=== PATIENT | female | born 1980 | race Caucasian/White ===

== ENCOUNTER → 2017-11-19 | Outpatient (CLI) | payer BC ==
--- NOTE | 2017-11-19 15:03 | XR ---
EXAMINATION TYPE: XR lumbar spine 2 or 3V DATE OF EXAM: 11/19/2017 CLINICAL HISTORY: pain TECHNIQUE: Three views of the lumbar spine are submitted. COMPARISON: None. FINDINGS: There are 5 lumbar type vertebral bodies identified. The lumbar spine shows satisfactory alignment w ithout evidence of acute fracture or dislocation. Vertebral body heights are within normal limits. Disc spaces are within normal limits. The overlying soft tissue appears unremarkable. IMPRESSION: No acute fracture or dislocation is seen in the lumbar spine. ICD 10 NO FRACTURE, INITIAL EVALUATION
== END | disposition home or self-care (01) ==
LOC: RADXRMAIN 14:40
PROVIDERS: ATTEND Physician Assistant
DX: M54.5 Low back pain (principal)
CPT/HCPCS: 72100

== ENCOUNTER → 2018-03-13 | Outpatient (CLI) | payer BC ==
[2018-03-13 17:50] LABS: ALT 28 U/L (9-52); AST 23 U/L (14-36); Albumin 4.6 g/dL (3.5-5.0); Alkaline Phosphatase 54 U/L (38-126); Anion Gap 8 mmol/L; Blood Urea Nitrogen 13 mg/dL (7-17); Calcium 9.5 mg/dL (8.4-10.2); Carbon Dioxide 24 mmol/L (22-30); Chloride 108 mmol/L (98-107); Glucose 85 mg/dL (74-99); Potassium 4.1 mmol/L (3.5-5.1); Sodium 140 mmol/L (137-145); Total Bilirubin 0.4 mg/dL (0.2-1.3); Total Protein 7.6 g/dL (6.3-8.2)
[2018-03-13 18:06] LABS: T4, Free (Free Thyroxine) 0.89 ng/dL (0.78-2.19)
== END | disposition home or self-care (01) ==
LOC: LABWHC1 17:23
PROVIDERS: ATTEND Physician Assistant
DX: L30.1 Dyshidrosis [pompholyx] (principal); R53.83 Other fatigue
CPT/HCPCS: 36415; 80053; 84439; 84443; 86780

== ENCOUNTER → 2018-12-03 | Outpatient (CLI) | payer BC | END | disposition home or self-care (01) | LOC: LABWHC1 16:01 | PROVIDERS: ATTEND Obstetrics & Gynecology | DX: Z34.01 Encounter for supervision of normal first pregnancy, first trimester (principal) | CPT/HCPCS: 36415; 84702; 86850; 86900; 86901 ==

== ENCOUNTER → 2019-01-11 | Outpatient (CLI) | payer BC | END | disposition home or self-care (01) | LOC: LABWHC1 16:10 | PROVIDERS: ATTEND Obstetrics & Gynecology | DX: N92.6 Irregular menstruation, unspecified (principal) | CPT/HCPCS: 36415; 84702 ==

== ENCOUNTER → 2019-05-22 | Outpatient (CLI) | payer BC ==
[2019-05-22 11:19] LABS: HCT 36.4 % (34.0-46.0); HGB 11.8 gm/dL (11.4-16.0); MCH 29.8 pg (25.0-35.0); MCHC 32.4 g/dL (31.0-37.0); MCV 91.8 fL (80.0-100.0); Mean Platelet Volume 7.8; Platelet Count 212 k/uL (150-450); RBC 3.96 m/uL (3.80-5.40); WBC 8.8 k/uL (3.8-10.6)
== END ==
LOC: LABWHC1 08:58
PROVIDERS: ATTEND Obstetrics & Gynecology
DX: Z34.02 Encounter for supervision of normal first pregnancy, second trimester (principal); Z3A.00 Weeks of gestation of pregnancy not specified
CPT/HCPCS: 36415; 82950; 85027

== ENCOUNTER 2019-08-16 16:46 | Inpatient (IN) | payer BC ==
[2019-08-16 17:48] LABS: Appearance,Urine Clear (Clear); Bacteria,Urine Occasional /hpf; Bilirubin,Urine Negative (Negative); Blood,Urine Negative (Negative); Color,Urine Colorless; Glucose,Urine (UA) Negative (Negative); Ketones,Urine Negative (Negative); Leukocyte Esterase,Urine Moderate (Negative); Nitrite,Urine Negative (Negative); PH, Urine 6.5 (5.0-8.0); Protein,Urine Negative (Negative); RBC,Urine 1 /hpf (0-5); Specific Gravity,Urine 1.002 (1.001-1.035); Squamous Epithelial Cell,Urine 1 /hpf (0-4); Urobilinogen,Urine <2.0 mg/dL (<2.0); WBC,Urine 11 /hpf (0-5)
[2019-08-16 17:56] LABS: Basophils % (A) 1 %; Eosinophils % (A) 0 %; HGB 12.4 gm/dL (11.4-16.0); Lymphocytes # (A) 0.9 k/uL (1.0-4.8); Lymphocytes % (A) 12 %; MCH 29.9 pg (25.0-35.0); MCHC 32.6 g/dL (31.0-37.0); MCV 91.9 fL (80.0-100.0); Mean Platelet Volume 9.7; Monocytes # (A) 0.4 k/uL (0-1.0); Monocytes % (A) 6 %; Neutrophils # (A) 5.6 k/uL (1.3-7.7); Neutrophils % (A) 77 %; Platelet Count 174 k/uL (150-450); RBC 4.13 m/uL (3.80-5.40); WBC 7.3 k/uL (3.8-10.6)
[2019-08-16 18:01] LABS: Protein/Creatinine Ratio,Urine 1.2
[2019-08-16 18:06] LABS: Uric Acid 3.5 mg/dL (3.7-7.4)
--- NOTE | 2019-08-16 18:57 | P.HPOB ---
History of Present Illness H&P Date: 08/16/19 Chief Complaint: elevated BP 38 year old presents at 36 weeks and 3 days to my office for a visit. Her blood pressure in the office was 142/86. She has complained of a mild headache but no vision changes no right upper quadrant pain. Her cervix is 1cm dilated, 50% effaced, -2 station, posterior. I sent her to triage for a lab workup. Labs were within normal limits except for a PC ratio that was elevated. Her blood pressures have come down low to 130s over 70s to 80s. With her cervical exam showing that she is remote from delivery, her PC ratio being the only outlier, and lack of symptoms, I would like to run a 24 hour urine protein. I am also going to give her Celestone injections 24 hours apart. Review of Systems All systems: negative Constitutional: Denies chills, Denies fever Eyes: denies blurred vision, denies pain Ears, nose, mouth and throat: Denies headache, Denies sore throat Cardiovascular: Denies chest pain, Denies shortness of breath Respiratory: Denies cough Gastrointestinal: Denies abdominal pain, Denies diarrhea, Denies nausea, Denies vomiting Genitourinary: Denies dysuria, Denies hematuria Musculoskeletal: Denies myalgias Integumentary: Denies pruritus, Denies rash Neurological: Denies numbness, Denies weakness Psychiatric: Denies anxiety, Denies depression Endocrine: Denies fatigue, Denies weight change Past Medical History Additional Past Medical History / Comment(s): Obstetric history: This is her first . She's had care with me since the first trimester. She was followed with [facility] and then with ct. Normal anatomy ultrasound. Blood type AB+, antibodies negative, rubella immune, RPR nonreactive, hepatitis B negative, HIV nonreactive, normal maternal age 22, toxoplasmosis negative. GBS negative History of Any Multi-Drug Resistant Organisms: None Reported Smoking Status: Never smoker Medications and Allergies Home Medications Medication Instructions Recorded Confirmed Type Aspirin [Adult Low Dose Aspirin EC] 81 mg PO DAILY 08/16/19 08/16/19 History Loratadine [Claritin] 10 mg PO DAILY 08/16/19 08/16/19 History Pnv No.95/Ferrous Fum/Folic AC 1 each PO DAILY 08/16/19 08/16/19 History [ Multivitamin Tablet] Allergies Allergy/AdvReac Type Severity Reaction Status Date / Time shellfish derived [Shellfish] Allergy Anaphylaxis Verified 08/16/19 16:51 Exam Osteopathic Statement: *. No significant issues noted on an osteopathic structural exam other than those noted in the History and Physical/Consult. Vital Signs Temp Pulse Resp BP 08/16/19 16:53 98.5 F 90 15 137/88 Intake and Output 08/16/19 08/16/19 08/16/19 06:59 14:59 22:59 Other: Weight 86.818 kg Heart: Regular rate and rhythm Lungs: Clear to auscultation bilaterally Abdomen: Soft, gravid, nontender Extremities: Negative Homans sign, 3+ DTR Results Result Diagrams: 08/16/19 17:20 Abnormal Lab Results - Last 24 Hours (Table) 08/16/19 08/16/19 08/16/19 Range/Units 16:45 17:20 17:20 Lymphocytes # 0.9 L (1.0-4.8) k/uL Uric Acid 3.5 L (3.7-7.4) mg/dL Ur Leukocyte Esterase Moderate H (Negative) Urine WBC 11 H (0-5) /hpf Urine Bacteria Occasional H (None) /hpf Assessment and Plan (1) Gestational hypertension Current Visit: Yes Status: Acute Code(s): O13.9 - GESTATIONAL HTN W/O SIGNIFICANT PROTEINURIA, UNSP TRIMESTER SNOMED Code(s): 906735716 Plan: 1. 24 urine protein 2. Celestone injections 24 hours apart 3. We did have a discussion that if she has an elevated urine protein we would need to place Cervidil tomorrow. If the urine protein is normal then she may be discharged home to return for delivery at 37 weeks.
[2019-08-16] MEDS: BETAMET ACET-BETAMETH SOD PHOS 6 MG/ML VIAL IM SCH (19:00)
[2019-08-17] MEDS ORDERED: DINOPROSTONE 10 MG INSERT.ER VAGINAL ONE (19:09)
[2019-08-17] MEDS: BETAMET ACET-BETAMETH SOD PHOS 6 MG/ML VIAL IM SCH (19:53)
--- NOTE | 2019-08-17 20:51 | P.PN ---
Progress Note - Text Progress Note Date: 08/17/19 Please see dictated H&P per Dr. Agrawal on this patient's admission. Patient was admitted for evaluation of hypertension and proteinuria. Patient is a 24 urine revealed elevated protein and had sporadic persistent elevated blood pressures. Dr. Agrawal discussed with the patient plan and at this time they have decided to proceed with delivery. Patient has an unfavorable cervix and therefore she discussed Cervidil placement and asked me to place this. Cervidil was placed, cervix is 1 cm dilated and thick. I did explain to the patient the induction procedure and process. All of her questions were answered.
[2019-08-18] MEDS ORDERED: CARBOPROST TROMETHAMINE 250 MCG/ML 1 ML AMP IM PRN (03:28)
[2019-08-18] MEDS ORDERED: LIDOCAINE 0.5% (PF) 5 MG/ML (50 ML SDV) SQ PRN (03:28)
[2019-08-18] MEDS ORDERED: TERBUTALINE 1 MG/ML VIAL SQ PRN (03:28)
[2019-08-18] MEDS ORDERED: OXYTOCIN 30 UNITS/500 ML NS 30 UNIT in SALINE 1 500ML.BAG IV SCH (03:28)
[2019-08-18] MEDS ORDERED: OXYTOCIN 10 UNIT/ML 1 ML VIAL IM PRN (03:28)
[2019-08-18] MEDS ORDERED: LACTATED RINGERS 1,000 ML IV SCH (03:28)
[2019-08-18] MEDS ORDERED: METHYLERGONOVINE 0.2 MG/ML 1 ML AMP IM PRN (03:28)
[2019-08-18 03:39] LABS: Basophils # (A) 0.1 k/uL (0-0.2); Basophils % (A) 0 %; Eosinophils # (A) 0.1 k/uL (0-0.7); Eosinophils % (A) 1 %; HCT 41.4 % (34.0-46.0); HGB 13.6 gm/dL (11.4-16.0); Lymphocytes # (A) 0.7 k/uL (1.0-4.8); Lymphocytes % (A) 5 %; MCH 29.8 pg (25.0-35.0); MCHC 32.8 g/dL (31.0-37.0); MCV 90.9 fL (80.0-100.0); Mean Platelet Volume 10.4; Monocytes # (A) 0.2 k/uL (0-1.0); Monocytes % (A) 2 %; Neutrophils # (A) 12.1 k/uL (1.3-7.7); Neutrophils % (A) 91 %; Platelet Count 226 k/uL (150-450); RBC 4.55 m/uL (3.80-5.40); RDW 13.1 % (11.5-15.5); WBC 13.3 k/uL (3.8-10.6)
[2019-08-18] MEDS: BUTORPHANOL 1 MG/ML 1 ML VIAL IV PRN ×2 (03:40→06:05)
[2019-08-18] MEDS ORDERED: diphenhydrAMINE 50 MG/ML 1 ML VIAL IVP PRN (07:38)
[2019-08-18] MEDS ORDERED: SIMETHICONE 80 MG CHEWABLE PO PRN (07:38)
[2019-08-18] MEDS ORDERED: BISACODYL 10 MG SUPP RECTAL PRN (07:38)
[2019-08-18] MEDS ORDERED: BENZOCAINE/MENTHOL SPRAY 1 GM/SPRAY AEROSOL TOPICAL PRN (07:38)
[2019-08-18] MEDS ORDERED: WITCH HAZEL 1 EACH MED..PAD TOPICAL PRN (07:38)
[2019-08-18] MEDS ORDERED: HYDROCORTISONE 2.5% RECTAL CREAM 30 GM TUBE RECTAL PRN (07:38)
[2019-08-18] MEDS ORDERED: ACETAMINOPHEN TAB 325 MG TAB PO PRN (07:38)
[2019-08-18] MEDS ORDERED: ZOLPIDEM 5 MG TAB PO PRN (07:38)
[2019-08-18] MEDS ORDERED: LANOLIN CREAM 5 GM TUBE TOPICAL PRN (07:38)
[2019-08-18] MEDS ORDERED: diphenhydrAMINE 25 MG CAP PO PRN (07:38)
[2019-08-18] MEDS ORDERED: OXYTOCIN 20 UNITS/1000 ML NS 1,000 ML IV SCH (07:45)
--- NOTE | 2019-08-18 07:46 | P.PROBDLV ---
Vaginal Delivery Note - . Vaginal Delivery Note: Normal spontaneous vaginal delivery viable female Apgars 8 and 9 delivery time is 0714 hours. Please see dictated H&P for intimate details of this patient's admission. Brief summary this is a pleasant 38-year-old 1 para 0 female 36-6/7 weeks gestation admitted by Dr. Agrawal for evaluation of hypertension. Patient has a diagnosis of preeclampsia and plan was to proceed with Cervidil placement. Cervidil is placed patient has spontaneous rupture membranes at approximately 3:00 in the morning for particulate meconium appearing fluid. Patient's labor progresses on its own at this time and she does request Stadol for pain control. Patient quickly progresses and gets to complete. She pushes the head to the perineum the posterior perineum was supported. We then have controlled delivery of infant's head over the intact perineum. Mouth and nares are bulb suctioned. [employer] is present for delivery. Of note when infant's head delivered there is a copious amount of clear fluid without evidence of meconium. The rest this infant's body was then easily delivered with gentle downward traction. This is a vigorous viable female infant Apgars are 8 and 9 delivery time was 0714 hours. After delivery of the the infant is late the mother's abdomen. After the cord is done pulsating is doubly clamped and then cut. It appears to be trivascular. The placenta is then spontaneously delivered intact. Inspection of the perineum does show a second-degree laceration. This is infiltrated with 1% lidocaine and then reapproximated with 3-0 Vicryl usual fashion. Excellent reapproximation is noted. All counts are correct 3. Blood loss is approximately 200 mL. There are no complications.
[2019-08-18] MEDS: IBUPROFEN 600 MG TAB PO PRN ×2 (15:48→20:35)
[2019-08-18] MEDS: SENNOSIDES-DOCUSATE SODIUM 1 EACH TAB PO SCH ×2 (20:35)
[2019-08-19] MEDS: IBUPROFEN 600 MG TAB PO PRN ×2 (08:14→20:22)
[2019-08-19] MEDS: SENNOSIDES-DOCUSATE SODIUM 1 EACH TAB PO SCH ×2 (08:15→20:22)
--- NOTE | 2019-08-19 08:26 | P.DS ---
Providers Date of admission: 08/18/19 09:44 Expected date of discharge: 08/19/19 Attending physician: Peri Agrawal Primary care physician: Stated None - Discharge Diagnosis(es) (1) Gestational hypertension Current Visit: Yes Status: Resolved (2) Pre-eclampsia Current Visit: Yes Status: Acute (3) Normal vaginal delivery Current Visit: Yes Status: Acute Hospital Course: Patient presented to my office with elevated blood pressures. When she presented here she had some elevated blood pressures, most labs were normal except for an elevated P0 she'll. Because she was only 36 week and to keep her for 24 hours and gave her steroid injections 24 hours apart. We also ran a 24-hour urine protein to confirm. The urine protein showed 438 mg of protein. She was diagnosed with preeclampsia and Cervidil was placed. She underwent normal vaginal delivery after the Cervidil was placed. her course was uncomplicated. She has no headache, vision changes, shortness of breath, nausea, vomiting, chest pain or calf pain. Her blood pressures are normal 120-130/60-80. She'll be discharged home day #1 in stable condition to follow-up with me in 6 weeks. We did review all the signs and symptoms of preeclampsia and went to be concerned and when to call the office. Plan - Discharge Summary New Discharge Prescriptions: New Ibuprofen [Motrin] 600 mg PO Q6HR PRN #30 tab PRN Reason: Mild Pain Or Fever >= 100.5 Discontinued Aspirin [Adult Low Dose Aspirin EC] 81 mg PO DAILY No Action Loratadine [Claritin] 10 mg PO DAILY Pnv No.95/Ferrous Fum/Folic AC [ Multivitamin Tablet] 1 each PO DAILY Discharge Medication List Loratadine [Claritin] 10 mg PO DAILY 08/16/19 [History] Pnv No.95/Ferrous Fum/Folic AC [ Multivitamin Tablet] 1 each PO DAILY 08/16/19 [History] Ibuprofen [Motrin] 600 mg PO Q6HR PRN #30 tab 08/19/19 [Rx] Follow up Appointment(s)/Referral(s): Peri Agrawal DO [Doctor of Osteopathic Medicine] - 6 Weeks Discharge Disposition: HOME SELF-CARE
[2019-08-19 23:57] VITALS: RESP 18
[2019-08-20] MEDS: IBUPROFEN 600 MG TAB PO PRN ×2 (04:43→08:46)
[2019-08-20 10:23] VITALS: BP 131/79; PULSE 90; TEMP 97.7
[2019-08-20] MEDS: SENNOSIDES-DOCUSATE SODIUM 1 EACH TAB PO SCH (10:24)
== END 2019-08-20 15:00 | disposition home or self-care (01) | DRG 807 ==
LOC: FBPOP 16:46 → 4FBP 18:28 → OBSVTOIN 08-18 09:44
PROVIDERS: ADMIT Obstetrics & Gynecology; ATTEND Obstetrics & Gynecology
PROC: 3E0P7VZ Introduction of Hormone into Female Reproductive, Via Natural or Artificial Opening (ICD-10-PCS; 2019-08-17)
PROC: 10E0XZZ Delivery of Products of Conception, External Approach (ICD-10-PCS; principal; 2019-08-18)
PROC: 0KQM0ZZ Repair Perineum Muscle, Open Approach (ICD-10-PCS; principal; 2019-08-18)
DX: O14.94 Unspecified pre-eclampsia, complicating childbirth (principal); Z37.0 Single live birth; Z3A.36 36 weeks gestation of pregnancy; O70.1 Second degree perineal laceration during delivery; O77.0 Labor and delivery complicated by meconium in amniotic fluid; Z79.82 Long term (current) use of aspirin; Z79.899 Other long term (current) drug therapy
CPT/HCPCS: 59025; 81001; 81050; 82570; 83615; 84156; 84450; 84460; 84550; 85025; 86850; 86900; 86901; 88307; 99215

== ENCOUNTER → 2021-06-30 | Outpatient (CLI) | payer BC ==
[2021-06-30 16:57] LABS: HCT 35.4 % (37.2-46.3); HGB 11.6 g/dL (12.0-15.0); MCH 30.1 pg (27.0-32.0); MCHC 32.8 g/dL (32.0-37.0); MCV 91.7 fL (80.0-97.0); Mean Platelet Volume 11.6 fL (9.5-12.2); Platelet Count 213 X 10*3/uL (140-440); RBC 3.86 X 10*6/uL (4.10-5.20); RDW 12.9 % (11.5-14.5); WBC 7.53 X 10*3/uL (4.50-10.00)
== END | disposition home or self-care (01) ==
LOC: LABWHC1 08:07
PROVIDERS: ATTEND Obstetrics & Gynecology
DX: Z34.82 Encounter for supervision of other normal pregnancy, second trimester (principal); Z3A.00 Weeks of gestation of pregnancy not specified
CPT/HCPCS: 36415; 82950; 85027

== ENCOUNTER 2021-08-28 15:00 | Outpatient (CLI) | payer BC ==
[2021-08-28 16:01] LABS: Creatinine,Urine Random 48.2 mg/dL; Protein/Creatinine Ratio,Urine 0.353
[2021-08-28 16:06] LABS: Basophils % (A) 0 %; Eosinophils # (A) 0.1 k/uL (0-0.7); Eosinophils % (A) 1 %; HCT 38.2 % (34.0-46.0); HGB 12.8 gm/dL (11.4-16.0); Lymphocytes # (A) 1.2 k/uL (1.0-4.8); Lymphocytes % (A) 16 %; MCHC 33.6 g/dL (31.0-37.0); MCV 92.3 fL (80.0-100.0); Mean Platelet Volume 9.3; Monocytes # (A) 0.4 k/uL (0-1.0); Monocytes % (A) 5 %; Neutrophils # (A) 5.8 k/uL (1.3-7.7); Neutrophils % (A) 76 %; Platelet Count 167 k/uL (150-450); RBC 4.14 m/uL (3.80-5.40); WBC 7.6 k/uL (3.8-10.6)
[2021-08-28 16:15] LABS: ALT 13 U/L (4-34); AST 31 U/L (14-36); African American GFR (CKD) >90 (>60 ml/min/1.73 sqM); Blood Urea Nitrogen 6 mg/dL (7-17); Non-African American GFR(CKD) >90 (>60 ml/min/1.73 sqM); Uric Acid 3.5 mg/dL (3.7-7.4)
[2021-08-28 16:17] LABS: Appearance,Urine Clear (Clear); Bilirubin,Urine Negative (Negative); Blood,Urine Negative (Negative); Color,Urine Light Yellow; Glucose,Urine (UA) Negative (Negative); Ketones,Urine Negative (Negative); Leukocyte Esterase,Urine Negative (Negative); Nitrite,Urine Negative (Negative); Protein,Urine Negative (Negative); Specific Gravity,Urine 1.009 (1.001-1.035); Urobilinogen,Urine <2.0 mg/dL (<2.0)
[2021-08-28 16:38] VITALS: BP 135/80; PULSE 93; RESP 16; TEMP 97
--- NOTE | 2021-08-28 19:30 | P.MSEPDOC ---
Presenting Problems - Arrival Data Date of Arrival on Unit: 08/28/21 Time of Arrival on Unit: 15:00 Mode of Transport: Ambulatory - Complaint OB-Reason for Admission/Chief Complaint: PIH Comment: Increased BP during the day at home and work; 133/84, 138/91, 138/89 Medical History - Information : 2 Para: 1 Term: 0 : 1 Abortions: Spontaneous or Elective: 0 Number of Living Children: 1 - Gestational Age Gestational Age by PRICILA (wks/days): 35 Weeks and 5 Days Review of Systems - Review of Systems Constitutional: No problems Breast: No problems ENT: No problems Cardiovascular: No problems Respiratory: No problems Gastrointestinal: No problems Genitourinary: No problems Musculoskeletal: No problems Neurological: No problems Skin: No problems Vital Signs - Temperature Temperature: 97 F Temperature Source: Temporal Artery Scan - Pulse Right Sitting Brachial Pulse Rate: 93 Pulse Assessment Method: Pulse Oximetry - Respirations Respiratory Rate: 16 Oxygen Delivery Method: Room Air O2 Sat by Pulse Oximetry: 100 - Blood Pressure Right Arm Sitting Blood Pressure: 135/80 Blood Pressure Mean: 98 Blood Pressure Source: Automatic Cuff Medical Screen Scoring - Assessment - Baby A Baseline FHR: 140 Heart Rate - NICHD Category: Category I (Normal) NST: Reactive Physician Notification - Physician Notified Physician Notified Date: 08/28/21 Physician Notified Time: 15:40 Physician: Danielle Muñoz - Notification Comment Comment: Orders rec'd for PIH labs. Results and serial BP reviewed c\physician. Order rec'd to d/c home, follow up as scheduled c\Dr. Agrawal. Maternal Triage Index - Maternal Triage Index Presenting for scheduled procedure w/no complaint: No - Stat/Priority 1 Stat Priority 1: No - Urgent/Priority 2 Urgent Priority 2: No - Prompt/Priority 3 Prompt Priority 3: Yes Criteria Met for Priority 3: Home BP DBP >90, asymptomatic Disposition - Disposition OB Disposition: Discharge to home, Written follow up instructions reviewed Discharge Date: 08/28/21 Discharge Time: 16:30 I agree with the RN Medical Screening Exam: Yes Case reviewed; plan agreed upon as documented in EMR&OBIX.: Yes Diagnosis: GESTATIONAL HTN W/O SIGNIFICANT PROTEINURIA, THIRD TRIMESTER
== END 2021-08-28 16:30 | disposition home or self-care (01) ==
LOC: FBPOP 15:00
PROVIDERS: ATTEND Obstetrics & Gynecology
DX: O13.3 Gestational [pregnancy-induced] hypertension without significant proteinuria, third trimester (principal); Z3A.35 35 weeks gestation of pregnancy; Z91.013 Allergy to seafood
CPT/HCPCS: 59025; 81003; 82565; 82570; 83615; 84156; 84450; 84460; 84520; 84550; 85025; 99215

== ENCOUNTER 2021-09-11 05:50 | Inpatient (IN) | payer BC ==
[2021-09-11] MEDS ORDERED: OXYTOCIN 10 UNIT/ML 1 ML VIAL IM PRN (06:12)
[2021-09-11] MEDS ORDERED: TERBUTALINE 1 MG/ML VIAL SQ PRN (06:12)
[2021-09-11] MEDS ORDERED: CARBOPROST TROMETHAMINE 250 MCG/ML 1 ML AMP IM PRN (06:12)
[2021-09-11] MEDS ORDERED: LIDOCAINE 1% (PF) 10 MG/ML (30 ML SDV) SQ PRN (06:12)
[2021-09-11] MEDS ORDERED: METHYLERGONOVINE 0.2 MG/ML 1 ML AMP IM PRN (06:12)
[2021-09-11] MEDS ORDERED: OXYTOCIN 30 UNITS/500 ML NS 30 UNIT in SALINE 1 500ML.BAG IV SCH (06:15)
[2021-09-11] MEDS: LACTATED RINGERS 1,000 ML IV SCH ×2 (06:37→13:54)
[2021-09-11 07:23] LABS: Basophils % (A) 0 %; Eosinophils % (A) 0 %; HCT 38.6 % (34.0-46.0); HGB 12.8 gm/dL (11.4-16.0); Lymphocytes % (A) 15 %; MCHC 33.3 g/dL (31.0-37.0); MCV 93.4 fL (80.0-100.0); Mean Platelet Volume 10.1; Monocytes # (A) 0.4 k/uL (0-1.0); Monocytes % (A) 6 %; Neutrophils # (A) 5.2 k/uL (1.3-7.7); Neutrophils % (A) 78 %; Platelet Count 157 k/uL (150-450); RBC 4.13 m/uL (3.80-5.40); RDW 12.7 % (11.5-15.5); WBC 6.6 k/uL (3.8-10.6)
--- NOTE | 2021-09-11 07:34 | P.HPOB ---
History of Present Illness H&P Date: 09/11/21 Chief Complaint: gestational hypertension 40 year old presents at 37 weeks 5 days for induction of labor due to gestational hypertension. Her cervix is 1-2/70/-2 and she is christina irregularly. heart tones 135 with moderate variability and reactive. Review of Systems All systems: negative Constitutional: Denies chills, Denies fever Eyes: denies blurred vision, denies pain Ears, nose, mouth and throat: Denies headache, Denies sore throat Cardiovascular: Denies chest pain, Denies shortness of breath Respiratory: Denies cough Gastrointestinal: Denies abdominal pain, Denies diarrhea, Denies nausea, Denies vomiting Genitourinary: Denies dysuria, Denies hematuria Musculoskeletal: Denies myalgias Integumentary: Denies pruritus, Denies rash Neurological: Denies numbness, Denies weakness Psychiatric: Denies anxiety, Denies depression Endocrine: Denies fatigue, Denies weight change Past Medical History Past Medical History: Asthma Additional Past Medical History / Comment(s): Obstetric history: This is her second . She's had care with me since the first trimester. Normal anatomy ultrasound. Blood type AB+, antibodies negative, rubella immune, RPR nonreactive, hepatitis B negative, HIV nonreactive, normal maternal age 22, toxoplasmosis negative. GBS negative. Pt has had some elevated blood pressures over the course of her but has not required hypertensive medication. History of Any Multi-Drug Resistant Organisms: None Reported Past Surgical History: No Surgical Hx Reported Additional Past Surgical History / Comment(s): skin biopsy Past Anesthesia/Blood Transfusion Reactions: No Reported Reaction Past Psychological History: No Psychological Hx Reported Smoking Status: Never smoker Past Alcohol Use History: None Reported Past Drug Use History: None Reported - Past Family History Mother Additional Family Medical History / Comment(s): diverticulits Medications and Allergies Home Medications Medication Instructions Recorded Confirmed Type Loratadine [Claritin] 10 mg PO DAILY 08/16/19 09/11/21 History Pnv No.95/Ferrous Fum/Folic AC 1 each PO DAILY 08/16/19 09/11/21 History [ Multivitamin Tablet] Aspirin 81 mg PO DAILY 08/28/21 09/11/21 History Allergies Allergy/AdvReac Type Severity Reaction Status Date / Time shellfish derived [Shellfish] Allergy Anaphylaxis Verified 09/11/21 06:07 Exam Osteopathic Statement: *. No significant issues noted on an osteopathic structural exam other than those noted in the History and Physical/Consult. Vital Signs Temp Pulse Resp BP Pulse Ox 09/11/21 06:14 97.3 F L 98 16 132/84 99 Intake and Output 09/10/21 09/11/21 09/11/21 22:59 06:59 14:59 Other: Weight 81.193 kg Heart: Regular rate and rhythm Lungs: Clear to auscultation bilaterally Abdomen: Soft, nontender Extremities: Negative Homans sign Results Result Diagrams: 09/11/21 06:54 Assessment and Plan (1) Gestational hypertension Current Visit: No Status: Resolved Code(s): O13.9 - GESTATIONAL HTN W/O SIGNIFICANT PROTEINURIA, UNSP TRIMESTER SNOMED Code(s): 74831228 (2) Encounter for induction of labor Current Visit: Yes Status: Acute Code(s): Z34.90 - ENCNTR FOR SUPRVSN OF NORMAL , UNSP, UNSP TRIMESTER SNOMED Code(s): 355397698 (3) 37 weeks gestation of Current Visit: Yes Status: Acute Code(s): Z3A.37 - 37 WEEKS GESTATION OF SNOMED Code(s): 45012809 Plan: 1. induction of labor with amniotomy and pitocin 2. anticipate normal vaginal delivery
[2021-09-11] MEDS ORDERED: BUTORPHANOL 1 MG/ML 1 ML VIAL IV PRN (08:02)
[2021-09-11] MEDS ORDERED: BENZOCAINE/MENTHOL SPRAY 1 GM/SPRAY AEROSOL TOPICAL PRN (18:03)
[2021-09-11] MEDS ORDERED: diphenhydrAMINE 50 MG CAP PO PRN (18:03)
[2021-09-11] MEDS ORDERED: diphenhydrAMINE 50 MG/ML 1 ML VIAL IVP PRN ×2 (18:03)
[2021-09-11] MEDS ORDERED: ZOLPIDEM 5 MG TAB PO PRN (18:03)
[2021-09-11] MEDS ORDERED: LANOLIN CREAM 5 GM TUBE TOPICAL PRN (18:03)
[2021-09-11] MEDS ORDERED: SIMETHICONE 80 MG CHEWABLE PO PRN (18:03)
[2021-09-11] MEDS ORDERED: diphenhydrAMINE 25 MG CAP PO PRN (18:03)
[2021-09-11] MEDS ORDERED: HYDROCORTISONE 2.5% RECTAL CREAM 30 GM TUBE RECTAL PRN (18:03)
[2021-09-11] MEDS: IBUPROFEN 600 MG TAB PO PRN (18:53)
[2021-09-11] MEDS: SENNOSIDES-DOCUSATE SODIUM 1 EACH TAB PO SCH (21:05)
[2021-09-11] MEDS: ACETAMINOPHEN TAB 325 MG TAB PO PRN (21:05)
[2021-09-12] MEDS: IBUPROFEN 600 MG TAB PO PRN ×2 (01:04→12:15)
[2021-09-12] MEDS: ACETAMINOPHEN TAB 325 MG TAB PO PRN (05:30)
--- NOTE | 2021-09-12 07:55 | P.PROBDLV ---
Vaginal Delivery Note - . Vaginal Delivery Note: 40 year old presents at 37 weeks 5 days for induction of labor due to gestational hypertension. Her cervix is 1-2/70/-2 and she is christina irregularly. heart tones 135 with moderate variability and reactive. Pitocin was started. Amniotomy performed at 7:16 AM and clear fluid noted. She progressed throughout the day and manage her pain with position changes. Her cervix was completely dilated at 1600. She pushed, and delivered a viable male over intact perineum at 1615. Head delivered ROP and nuchal cord 1 easily reduced, anterior shoulder delivered gentle downward guidance followed by posterior shoulder and rest of body. Nose and mouth bulb suctioned, cord clamped and cut, infant placed on mother's abdomen. Apgars 8, 9, weight 6 lbs. 15 oz. Placenta delivered spontaneous, intact with three-vessel cord at 1617. Vagina, cervix, and perineum were inspected. Second-degree midline laceration was repaired with 3-0 Vicryl. Estimated blood loss 150 mL. Mother and baby in stable condition.
--- NOTE | 2021-09-12 07:57 | P.DS ---
Providers Date of admission: 09/11/21 05:50 Expected date of discharge: 09/12/21 Attending physician: Peri Agrawal Primary care physician: Stated None - Discharge Diagnosis(es) (1) Gestational hypertension Current Visit: No Status: Resolved (2) Encounter for induction of labor Current Visit: Yes Status: Resolved (3) 37 weeks gestation of Current Visit: Yes Status: Resolved (4) Normal vaginal delivery Current Visit: No Status: Acute Hospital Course: Patient presented for induction of labor due to gestational hypertension. She underwent a normal vaginal delivery. course was uncomplicated. Patient denies nausea, vomiting, chest pain, shortness of breath or any calf pain. She will be discharged home day #1 in stable condition to follow-up with me in 6 weeks. Plan - Discharge Summary New Discharge Prescriptions: New Ibuprofen [Motrin] 600 mg PO Q6HR PRN #40 tab PRN Reason: Mild Pain (Scale 1 To 3) Discontinued Aspirin 81 mg PO DAILY No Action Loratadine [Claritin] 10 mg PO DAILY Pnv No.95/Ferrous Fum/Folic AC [ Multivitamin Tablet] 1 each PO DAILY Discharge Medication List Loratadine [Claritin] 10 mg PO DAILY 08/16/19 [History] Pnv No.95/Ferrous Fum/Folic AC [ Multivitamin Tablet] 1 each PO DAILY 08/16/19 [History] Ibuprofen [Motrin] 600 mg PO Q6HR PRN #40 tab 09/12/21 [Rx] Follow up Appointment(s)/Referral(s): Peri Agrawal DO [Doctor of Osteopathic Medicine] - 10/24/21 3:45 am Discharge Disposition: HOME SELF-CARE
[2021-09-12 08:27] LABS: Basophils % (A) 0 %; Eosinophils # (A) 0.1 k/uL (0-0.7); Eosinophils % (A) 1 %; HCT 35.8 % (34.0-46.0); HGB 12.1 gm/dL (11.4-16.0); Lymphocytes # (A) 1.2 k/uL (1.0-4.8); Lymphocytes % (A) 9 %; MCH 31.8 pg (25.0-35.0); MCHC 33.8 g/dL (31.0-37.0); MCV 94.2 fL (80.0-100.0); Monocytes # (A) 0.4 k/uL (0-1.0); Monocytes % (A) 3 %; Neutrophils # (A) 10.6 k/uL (1.3-7.7); Neutrophils % (A) 87 %; Platelet Count 165 k/uL (150-450); RDW 12.6 % (11.5-15.5); WBC 12.3 k/uL (3.8-10.6)
[2021-09-12] MEDS: SENNOSIDES-DOCUSATE SODIUM 1 EACH TAB PO SCH (08:59)
[2021-09-12] MEDS: LACTATED RINGERS 1,000 ML IV SCH ×3 (13:19→15:44)
[2021-09-12 16:00] VITALS: BP 131/83; PULSE 78; RESP 14; TEMP 97.5
== END 2021-09-12 17:50 | disposition home or self-care (01) | DRG 807 ==
LOC: 4FBP 05:50
PROVIDERS: ADMIT Obstetrics & Gynecology; ATTEND Obstetrics & Gynecology
PROC: 0KQM0ZZ Repair Perineum Muscle, Open Approach (ICD-10-PCS; principal; 2021-09-11)
PROC: 10E0XZZ Delivery of Products of Conception, External Approach (ICD-10-PCS; principal; 2021-09-11)
PROC: 10907ZC Drainage of Amniotic Fluid, Therapeutic from Products of Conception, Via Natural or Artificial Opening (ICD-10-PCS; 2021-09-11)
PROC: 3E033VJ Introduction of Other Hormone into Peripheral Vein, Percutaneous Approach (ICD-10-PCS; 2021-09-11)
DX: O13.4 Gestational [pregnancy-induced] hypertension without significant proteinuria, complicating childbirth (principal); Z37.0 Single live birth; O69.81X0 Labor and delivery complicated by cord around neck, without compression, not applicable or unspecified; O70.1 Second degree perineal laceration during delivery; O99.52 Diseases of the respiratory system complicating childbirth; J45.909 Unspecified asthma, uncomplicated; Z3A.37 37 weeks gestation of pregnancy; Z79.82 Long term (current) use of aspirin; Z79.899 Other long term (current) drug therapy; Z91.013 Allergy to seafood
CPT/HCPCS: 85025; 86850; 86900; 86901

== ENCOUNTER 2021-09-18 18:05 | Outpatient (CLI) | payer BC ==
[2021-09-18 18:52] LABS: Basophils % (A) 0 %; Eosinophils # (A) 0.1 k/uL (0-0.7); Eosinophils % (A) 1 %; HCT 36.1 % (34.0-46.0); Lymphocytes # (A) 1.6 k/uL (1.0-4.8); Lymphocytes % (A) 24 %; MCHC 33.2 g/dL (31.0-37.0); MCV 93.6 fL (80.0-100.0); Mean Platelet Volume 10.1; Monocytes # (A) 0.3 k/uL (0-1.0); Monocytes % (A) 4 %; Neutrophils # (A) 4.6 k/uL (1.3-7.7); Neutrophils % (A) 69 %; Platelet Count 240 k/uL (150-450); RBC 3.86 m/uL (3.80-5.40); RDW 12.7 % (11.5-15.5); WBC 6.7 k/uL (3.8-10.6)
[2021-09-18 19:01] LABS: ALT 29 U/L (4-34); AST 30 U/L (14-36); African American GFR (CKD) >90 (>60 ml/min/1.73 sqM); Blood Urea Nitrogen 14 mg/dL (7-17); LDH 557 U/L (313-618); Non-African American GFR(CKD) >90 (>60 ml/min/1.73 sqM); Uric Acid 5.1 mg/dL (3.7-7.4)
[2021-09-18 19:42] VITALS: BP 155/87; PULSE 67; RESP 16; TEMP 97.9
--- NOTE | 2021-09-19 06:50 | P.MSEPDOC ---
Presenting Problems - Arrival Data Date of Arrival on Unit: 09/18/21 Time of Arrival on Unit: 18:05 Mode of Transport: Ambulatory - Complaint OB-Reason for Admission/Chief Complaint: PIH Comment: PIH assessment Medical History - Information : 2 Para: 2 Term: 2 - Gestational Age Gestational Age by PRICILA (wks/days): 41 Weeks and 0 Days Review of Systems - Review of Systems Constitutional: No problems Breast: No problems ENT: No problems Cardiovascular: No problems Respiratory: No problems Gastrointestinal: No problems Genitourinary: No problems Musculoskeletal: No problems Neurological: No problems Skin: No problems Vital Signs - Temperature Temperature: 97.9 F Temperature Source: Temporal Artery Scan - Pulse Right Sitting Pulse Rate: 67 Pulse Assessment Method: Automatic Cuff - Respirations Respiratory Rate: 16 Oxygen Delivery Method: Room Air O2 Sat by Pulse Oximetry: 98 - Blood Pressure Right Arm Sitting Blood Pressure: 155/87 Blood Pressure Mean: 109 Blood Pressure Source: Automatic Cuff Physician Notification - Physician Notified Physician Notified Date: 09/18/21 Physician Notified Time: 19:25 Physician: Saeid Terrell - Notification Comment Comment: Spk c\Dr. Terrell, aware of pts arrival to triage, PIH assessment, pt delivered on 09/11/21. Reviewed serial BPs and pts labs. Order rec'd to d/c home, pt to follow up c\Dr. Agrawal tomorrow at 130p. Maternal Triage Index - Urgent/Priority 2 Urgent Priority 2: Yes Provider Notified: Saeid Terrell Provider Notified Time: 18:05 Criteria Met for Priority 2: BP- Disposition - Disposition OB Disposition: Discharge to home, Written follow up instructions reviewed Discharge Date: 09/18/21 Discharge Time: 19:30 I agree with the RN Medical Screening Exam: Yes Case reviewed; plan agreed upon as documented in EMR&OBIX.: Yes Diagnosis: GESTATNL HTN WITHOUT SIGNIFICANT PROTEIN, COMP THE PUERP (Patient presented with concerns of elevated blood pressure at home. She delivered approximately 1 week ago and noted some significant blood pressure elevations today at home. was complicated by gestational hypertension for which she was induced. Blood pressures here are mildly elevated but not in the range that deemed treatment. There is no evidence of preeclampsia. Patient was discharged home follow up with Dr. Agrawal for blood pressure check and 24 hours.)
== END 2021-09-18 19:30 | disposition home or self-care (01) ==
LOC: FBPOP 18:05
PROVIDERS: ATTEND Obstetrics & Gynecology
DX: O13.5 Gestational [pregnancy-induced] hypertension without significant proteinuria, complicating the puerperium (principal); Z91.013 Allergy to seafood
CPT/HCPCS: 82306; 82565; 83615; 84443; 84450; 84460; 84520; 84550; 85025; 99215

== ENCOUNTER 2022-12-08 02:57 | Emergency (ER) | payer BC ==
[2022-12-08 03:08] VITALS: TEMP 98.1
[2022-12-08] MEDS ORDERED: SODIUM CHLORIDE 0.9% 1,000 ML IV ONE (03:45)
--- NOTE | 2022-12-08 04:34 | ED ---
Female Urogenital HPI - General Chief complaint: Vaginal Bleeding Stated complaint: Miscarriage Time Seen by Provider: 12/08/22 03:09 Source: patient, family Mode of arrival: wheelchair Limitations: no limitations - History of Present Illness Initial comments: 42-year-old female who is approximately 10 weeks presents to the emergency room with vaginal bleeding. States that she started having vaginal bleeding around 2 AM. She follows with Dr. Agrawal. She did have an ultrasound 2 weeks ago which demonstrated an intrauterine with a heartbeat. She states that the bleeding is bright red in color with clots. It makes her feel lightheaded. Denies urinary complaints. Has lower abdominal cramping. No changes in her bowel habits. No other alleviating, precipitating or modifying factors - Related Data Home Medications Medication Instructions Recorded Confirmed Loratadine [Claritin] 10 mg PO DAILY 08/16/19 09/18/21 Previous Rx's Medication Instructions Recorded Ibuprofen [Motrin] 600 mg PO Q6HR PRN #40 tab 09/12/21 Allergies Allergy/AdvReac Type Severity Reaction Status Date / Time shellfish derived [Shellfish] Allergy Anaphylaxis Verified 12/08/22 03:05 Review of Systems ROS Statement: Those systems with pertinent positive or pertinent negative responses have been documented in the HPI. ROS Other: All systems not noted in ROS Statement are negative. Past Medical History Past Medical History: Asthma Additional Past Medical History / Comment(s): Obstetric history: This is her second . She's had care with me since the first trimester. Normal anatomy ultrasound. Blood type AB+, antibodies negative, rubella immune, RPR nonreactive, hepatitis B negative, HIV nonreactive, normal maternal age 22, toxoplasmosis negative. GBS negative. Pt has had some elevated blood pressures over the course of her but has not required hypertensive medication. History of Any Multi-Drug Resistant Organisms: None Reported Past Surgical History: No Surgical Hx Reported Additional Past Surgical History / Comment(s): skin biopsy Past Anesthesia/Blood Transfusion Reactions: No Reported Reaction Past Psychological History: No Psychological Hx Reported Smoking Status: Never smoker Past Alcohol Use History: None Reported Past Drug Use History: None Reported - Past Family History Mother Additional Family Medical History / Comment(s): diverticulits General Exam Limitations: no limitations General appearance: alert, in no apparent distress Head exam: Present: atraumatic, normocephalic, normal inspection Eye exam: Present: normal appearance, PERRL, EOMI. Absent: scleral icterus, conjunctival injection, periorbital swelling ENT exam: Present: normal exam, mucous membranes moist Neck exam: Present: normal inspection. Absent: tenderness, meningismus, lymphadenopathy Respiratory exam: Present: normal lung sounds bilaterally. Absent: respiratory distress, wheezes, rales, rhonchi, stridor Cardiovascular Exam: Present: regular rate, normal rhythm, normal heart sounds. Absent: systolic murmur, diastolic murmur, rubs, gallop, clicks GI/Abdominal exam: Present: soft, normal bowel sounds. Absent: distended, tenderness, guarding, rebound, rigid External exam: Present: normal external exam. Absent: erythema, lesions Speculum exam: Present: vaginal bleeding, tissue Extremities exam: Present: normal inspection, full ROM, normal capillary refill. Absent: tenderness, pedal edema, joint swelling, calf tenderness Back exam: Present: normal inspection Neurological exam: Present: alert, oriented X3, CN II-XII intact Psychiatric exam: Present: normal affect, normal mood Skin exam: Present: warm, dry, intact, normal color. Absent: rash Course Vital Signs 12/08/22 12/08/22 03:05 06:19 Temperature 98.1 F Pulse Rate 89 77 Respiratory 18 16 Rate Blood Pressure 122/77 123/82 O2 Sat by Pulse 98 Oximetry Medical Decision Making - Medical Decision Making Was pt. sent in by a medical professional or institution (MEGAN Quinn, MARINE [employer]ION [employer]ENT, urgent care, hospital, or detention...) When possible be specific @ -No Did you speak to anyone other than the patient for history (EMS, parent, family, police, friend...)? What history was obtained from this source @ -No Did you review nursing and triage notes (agree or disagree)? Why? @ -I reviewed and agree with nursing and triage notes Were old charts reviewed (outside hosp., previous admission, EMS record, old EKG, old radiological studies, urgent care reports/EKG's, detention records)? Report findings @ -No old charts were reviewed Differential Diagnosis (chest pain, altered mental status, abdominal pain women, abdominal pain men, vaginal bleeding, weakness, fever, dyspnea, syncope, headache, dizziness, GI bleed, back pain, seizure, CVA, palpatations, mental health, musculoskeletal)? @ -spontaneous miscarriage, incomplete miscarriage, subchorionic hemorrhage EKG interpreted by me (3pts min.). @ -Not done X-rays interpreted by me (1pt min.). @ -None done CT interpreted by me (1pt min.). @ -None done U/S interpreted by me (1pt. min.). @ -yes, no intrauterine What testing was considered but not performed or refused? (CT, X-rays, U/S, labs)? Why? @ -None What meds were considered but not given or refused? Why? @ -None Did you discuss the management of the patient with other professionals (professionals i.e. , PA, MARINE EXTENSION AGENT, lab, RT, psych nurse, social worker school, gleason operator, teacher, executive officer, rehabilitation caseworker)? Give summary @ -Yes, Dr. Agrawal Was smoking cessation discussed for >3mins.? @ -No Was critical care preformed (if so, how long)? @ -No Were there social determinants of health that impacted care today? How? (Homelessness, low income, unemployed, alcoholism, drug addiction, transportation, low edu. Level, literacy, decrease access to med. care, correction, rehab)? @ -No Was there de-escalation of care discussed even if they declined (Discuss DNR or withdrawal of care, Hospice)? DNR status @ -No What co-morbidities impacted this encounter? (DM, HTN, Smoking, COPD, CAD, Cancer, CVA, ARF, Chemo, Hep., AIDS, mental health diagnosis, sleep apnea, morbid obesity)? @ -None Was patient admitted / discharged? Hospital course, mention meds given and route, prescriptions, significant lab abnormalities, going to OR and other pertinent info. @ -Upon arrival patient was placed into room 1. Physical exam was performed. Labs were conducted an ultrasound was performed which demonstrated no intrauterine . I did perform a speculum exam. I did remove a moderate amount membranous tissue from the vagina. Patient feels improved and is hemodynamically stable. She does have AB+ blood type. I called and spoke with Dr. Agrawal who will follow the patient in office. Patient discharged home in stable condition Undiagnosed new problem with uncertain prognosis? @ -No Drug Therapy requiring intensive monitoring for toxicity (Heparin, Nitro, Insulin, Cardizem)? @ -No Were any procedures done? @ -No Diagnosis/symptom? @ -acute vaginal bleeding, spontaneous miscarriage Acute, or Chronic, or Acute on Chronic? @ -acute Uncomplicated (without systemic symptoms) or Complicated (systemic symptoms)? @ -complicated Side effects of treatment? @ -no Exacerbation, Progression, or Severe Exacerbation? @ -No Poses a threat to life or bodily function? How? (Chest pain, USA, GA, pneumonia, PE, COPD, DKA, ARF, appy, cholecystitis, CVA, Diverticulitis, Homicidal, Suicidal, threat to staff... and all critical care pts) @ -yes, heavy vaginal bleeding can lead to hypotension and . Patient also needs beta quant to return to zero as retained POC can lead to infection - Lab Data Result diagrams: 12/08/22 04:35 12/08/22 04:35 Lab Results 12/08/22 12/08/22 12/08/22 Range/Units 04:35 04:35 04:35 WBC 11.0 H (3.8-10.6) k/uL RBC 4.15 (3.80-5.40) m/uL Hgb 12.5 (11.4-16.0) gm/dL Hct 36.8 (34.0-46.0) % MCV 88.6 (80.0-100.0) fL MCH 30.1 (25.0-35.0) pg MCHC 34.0 (31.0-37.0) g/dL RDW 12.8 (11.5-15.5) % Plt Count 208 (150-450) k/uL MPV 8.9 Neutrophils % 88 % Lymphocytes % 8 % Monocytes % 3 % Eosinophils % 1 % Basophils % 0 % Neutrophils # 9.7 H (1.3-7.7) k/uL Lymphocytes # 0.8 L (1.0-4.8) k/uL Monocytes # 0.3 (0-1.0) k/uL Eosinophils # 0.1 (0-0.7) k/uL Basophils # 0.0 (0-0.2) k/uL PT 11.1 (9.0-12.0) sec INR 1.1 (<1.2) Sodium 137 (137-145) mmol/L Potassium 3.8 (3.5-5.1) mmol/L Chloride 107 (98-107) mmol/L Carbon Dioxide 17 L (22-30) mmol/L Anion Gap 13 mmol/L BUN 7 (7-17) mg/dL Creatinine 0.43 L (0.52-1.04) mg/dL Est GFR (CKD-EPI)AfAm >90 (>60 ml/min/1.73 sqM) Est GFR (CKD-EPI)NonAf >90 (>60 ml/min/1.73 sqM) Glucose 104 H (74-99) mg/dL Calcium 9.0 (8.4-10.2) mg/dL Total Bilirubin 0.5 (0.2-1.3) mg/dL AST 24 (14-36) U/L ALT 18 (4-34) U/L Alkaline Phosphatase 44 (38-126) U/L Total Protein 7.1 (6.3-8.2) g/dL Albumin 4.2 (3.5-5.0) g/dL HCG, Quant 2072.0 mIU/mL Urine Color Urine Appearance (Clear) Urine pH (5.0-8.0) Ur Specific [place] (1.001-1.035) Urine Protein (Negative) Urine Glucose (UA) (Negative) Urine Ketones (Negative) Urine Blood (Negative) Urine Nitrite (Negative) Urine Bilirubin (Negative) Urine Urobilinogen (<2.0) mg/dL Ur Leukocyte Esterase (Negative) Urine RBC (0-5) /hpf Urine WBC (0-5) /hpf Urine Mucus (None) /hpf 12/08/22 Range/Units 05:30 WBC (3.8-10.6) k/uL RBC (3.80-5.40) m/uL Hgb (11.4-16.0) gm/dL Hct (34.0-46.0) % MCV (80.0-100.0) fL MCH (25.0-35.0) pg MCHC (31.0-37.0) g/dL RDW (11.5-15.5) % Plt Count (150-450) k/uL MPV Neutrophils % % Lymphocytes % % Monocytes % % Eosinophils % % Basophils % % Neutrophils # (1.3-7.7) k/uL Lymphocytes # (1.0-4.8) k/uL Monocytes # (0-1.0) k/uL Eosinophils # (0-0.7) k/uL Basophils # (0-0.2) k/uL PT (9.0-12.0) sec INR (<1.2) Sodium (137-145) mmol/L Potassium (3.5-5.1) mmol/L Chloride (98-107) mmol/L Carbon Dioxide (22-30) mmol/L Anion Gap mmol/L BUN (7-17) mg/dL Creatinine (0.52-1.04) mg/dL Est GFR (CKD-EPI)AfAm (>60 ml/min/1.73 sqM) Est GFR (CKD-EPI)NonAf (>60 ml/min/1.73 sqM) Glucose (74-99) mg/dL Calcium (8.4-10.2) mg/dL Total Bilirubin (0.2-1.3) mg/dL AST (14-36) U/L ALT (4-34) U/L Alkaline Phosphatase (38-126) U/L Total Protein (6.3-8.2) g/dL Albumin (3.5-5.0) g/dL HCG, Quant mIU/mL Urine Color Red Urine Appearance Cloudy H (Clear) Urine pH 5.5 (5.0-8.0) Ur Specific [place] 1.022 (1.001-1.035) Urine Protein 1+ H (Negative) Urine Glucose (UA) Negative (Negative) Urine Ketones Trace H (Negative) Urine Blood Large H (Negative) Urine Nitrite Negative (Negative) Urine Bilirubin Negative (Negative) Urine Urobilinogen <2.0 (<2.0) mg/dL Ur Leukocyte Esterase Moderate H (Negative) Urine RBC >182 H (0-5) /hpf Urine WBC 19 H (0-5) /hpf Urine Mucus Many H (None) /hpf Disposition Clinical Impression: Spontaneous miscarriage Disposition: HOME SELF-CARE Condition: Stable Instructions (If sedation given, give patient instructions): Miscarriage (ED) Additional Instructions: Please follow-up with Dr. Agrawal for further management and return for any new or worsening symptoms including fever, uncontrolled pain or heavy bleeding. Is patient prescribed a controlled substance at d/c from ED?: No Referrals: Jah Aviles DO [Primary Care Provider] - 1-2 days Peri Agrawal DO [Family Provider] - 1-2 days Time of Disposition: 06:02
[2022-12-08 04:57] LABS: Basophils % (A) 0 %; Eosinophils # (A) 0.1 k/uL (0-0.7); Eosinophils % (A) 1 %; HCT 36.8 % (34.0-46.0); HGB 12.5 gm/dL (11.4-16.0); Lymphocytes # (A) 0.8 k/uL (1.0-4.8); Lymphocytes % (A) 8 %; MCH 30.1 pg (25.0-35.0); MCV 88.6 fL (80.0-100.0); Mean Platelet Volume 8.9; Monocytes # (A) 0.3 k/uL (0-1.0); Monocytes % (A) 3 %; Neutrophils # (A) 9.7 k/uL (1.3-7.7); Neutrophils % (A) 88 %; Platelet Count 208 k/uL (150-450); RBC 4.15 m/uL (3.80-5.40); RDW 12.8 % (11.5-15.5)
[2022-12-08 05:06] LABS: ALT 18 U/L (4-34); AST 24 U/L (14-36); African American GFR (CKD) >90 (>60 ml/min/1.73 sqM); Albumin 4.2 g/dL (3.5-5.0); Alkaline Phosphatase 44 U/L (38-126); Anion Gap 13 mmol/L; Blood Urea Nitrogen 7 mg/dL (7-17); Carbon Dioxide 17 mmol/L (22-30); Chloride 107 mmol/L (98-107); Glucose 104 mg/dL (74-99); Non-African American GFR(CKD) >90 (>60 ml/min/1.73 sqM); Potassium 3.8 mmol/L (3.5-5.1); Sodium 137 mmol/L (137-145); Total Bilirubin 0.5 mg/dL (0.2-1.3); Total Protein 7.1 g/dL (6.3-8.2)
[2022-12-08 05:10] LABS: INR 1.1 (<1.2); Prothrombin Time 11.1 sec (9.0-12.0)
--- NOTE | 2022-12-08 05:38 | US ---
EXAMINATION TYPE: Transabdominal DATE OF EXAM: 12/08/2022 4:36 AM COMPARISON: Prior ultrasound November 22, 2022 CLINICAL INDICATION: Female, 42 years old with history of heavy vaginal bleed, miscarriage; heavy ble eding with clots started 2.5 hours ago, cramping, , US 11/22/2022 produced viable 8w0d fetus. EXAM PERFORMED: OBTA EXAM MEASUREMENTS: GESTATIONAL AGE / DATING Physician Established: Not yet established Dates by LMP: (10 weeks/1 days) EDC: 07/03/2023 Dates by First Scan: (10 weeks/2 days) EDC: 07/04/2023 Dates by Current Scan for: No IUP seen at this time MATERNAL ANATOMY Uterus: 11.4x 6.8 x 6.4 - Endometrium = 1.6cm Right Ovary: not seen due to bowel gas Left Ovary: not seen due to bowel gas Post CDS / Adnexa: wnl Presence of free fluid: no Presence of corpus luteal cyst: not seen Presence of subchorionic bleed: no GESTATION / SURVEY IUP: No IUP seen at this time Beta HcG (if available): not drawn Anteverted uterus redemonstrated. Endometrial stripe measures 16 mm in thickness. Prior visualized li ve intrauterine gestation now not clearly seen as gestational sac, yolk sac, and pole cannot be identified. No free fluid. Neither ovary seen. No adnexal masses are noted. IMPRESSION: Findings consistent with interval spontaneous .
[2022-12-08 05:46] LABS: Appearance,Urine Cloudy (Clear); Bilirubin,Urine Negative (Negative); Blood,Urine Large (Negative); Color,Urine Red; Glucose,Urine (UA) Negative (Negative); Ketones,Urine Trace (Negative); Leukocyte Esterase,Urine Moderate (Negative); Mucus,Urine Many /hpf; Nitrite,Urine Negative (Negative); PH, Urine 5.5 (5.0-8.0); Protein,Urine 1+ (Negative); RBC,Urine >182 /hpf (0-5); Specific Gravity,Urine 1.022 (1.001-1.035); Urobilinogen,Urine <2.0 mg/dL (<2.0); WBC,Urine 19 /hpf (0-5)
[2022-12-08 06:21] VITALS: BP 123/82; PULSE 77; RESP 16
== END 2022-12-08 06:21 | disposition home or self-care (01) ==
LOC: EC 02:57
DX: O03.4 Incomplete spontaneous abortion without complication (principal); O99.511 Diseases of the respiratory system complicating pregnancy, first trimester; J45.909 Unspecified asthma, uncomplicated; Z91.013 Allergy to seafood; Z3A.10 10 weeks gestation of pregnancy
CPT/HCPCS: 36415; 76801; 80053; 81001; 84702; 85025; 85610; 88305; 96360; 99284

== ENCOUNTER → 2022-12-17 | Outpatient (CLI) | payer BC | END | disposition home or self-care (01) | LOC: LABWHC1 16:16 | PROVIDERS: ATTEND Obstetrics & Gynecology | DX: O03.9 Complete or unspecified spontaneous abortion without complication (principal); Z3A.00 Weeks of gestation of pregnancy not specified | CPT/HCPCS: 36415; 84702 ==

== ENCOUNTER → 2023-08-22 | Outpatient (CLI) | payer OTHER ==
--- NOTE | 2023-08-22 09:08 | XR ---
EXAMINATION TYPE: XR cervical spine 5 views comp, XR lumbosacral spine 5 views DATE OF EXAM: 08/22/2023 COMPARISON: None HISTORY: 42-year-old female M99.01 M54.2 M99.03 M54.50 FINDINGS: Cervical spine: Some facet and uncovertebral joint arthropathy in the lower cervical spine. This may contribute to mo derate neuroforaminal narrowing on both sides at C6-C7 and mild at C7-T1. Reversal of the normal cervical lordosis. Trace grade 1 retrolisthesis C6-C7. Remaining alignment is maintained. No predental space widening or prevertebral soft tissue swelling. Normal odontoid view. Lumbar spine: 5 lumbar type vertebral bodies. Mild degenerative disc disease with disc space narrowing L4-L5 and L5 -S1. Vertebral body heights are preserved and alignment is maintained. IMPRESSION: 1. Cervical spine: Mild to moderate spondylotic change mid to lower cervical spine. Trace grade 1 ret rolisthesis C6/C7. Possible moderate bony neuroforaminal narrowing at C6-C7 and mild at C7-T1. 2. Lumbar spine: Mild degenerative disc disease L4-L5 and L5-S1. No vertebral compression collapse or malalignment.
== END | disposition home or self-care (01) ==
LOC: RADXRMAIN 08:11
PROVIDERS: ATTEND Chiropractor
DX: M99.01 Segmental and somatic dysfunction of cervical region (principal); M99.03 Segmental and somatic dysfunction of lumbar region; M51.36 Other intervertebral disc degeneration, lumbar region; M51.37 Other intervertebral disc degeneration, lumbosacral region; M47.812 Spondylosis without myelopathy or radiculopathy, cervical region; M43.12 Spondylolisthesis, cervical region
CPT/HCPCS: 72050; 72110

== ENCOUNTER → 2023-10-29 | Outpatient (CLI) | payer OTHER ==
--- NOTE | 2023-10-31 13:38 | MM ---
Reason for Exam: Screening (asymptomatic). Baseline mammogram. Patient History: Menarche at age 14. First Full-Term at age 39. Late child-bearing (after 30). Maternal aunt had breast cancer at or over age 50. Paternal aunt had breast cancer at or over age 50. Last menstrual period: 10/13/2023 Risk Values: Xin 5 year model risk: 0.9%. NCI Lifetime model risk: 13.4%. Prior Study Comparison: Patient's first Mammogram. Tissue Density: The breasts are heterogeneously dense, which may obscure small masses. Findings: Analyzed By CAD. There is no suspicious group of microcalcifications. Asymmetric density inner central and far posterior left breast. Additional views are recommended. Overall Assessment: Incomplete: need additional imaging evaluation, BI-RAD 0 Management: Diagnostic Mammogram of the left breast. . Patient should continue monthly self-breast exams. A clinical breast exam by your physician is recommended on an annual basis. This exam should not preclude additional follow-up of suspicious palpable abnormalities. Note on Xin scores and lifetime risk: 1. A Xin score greater than 3% is considered moderate risk. If this is the case, consider specialist referral to assess eligibility for a risk reducing agent. 2. If overall lifetime risk for the development of breast cancer is 20% or higher, the patient may qualify for future screening with alternating mammogram and breast MRI. Electronically signed and approved by: Rian Skaggs M.D. Radiologis
== END | disposition home or self-care (01) ==
LOC: RADMAMWWP 16:03
PROVIDERS: ATTEND Obstetrics & Gynecology
DX: Z12.31 Encounter for screening mammogram for malignant neoplasm of breast (principal); Z80.3 Family history of malignant neoplasm of breast
CPT/HCPCS: 77067

== ENCOUNTER → 2023-11-04 | Outpatient (CLI) | payer OTHER ==
--- NOTE | 2023-11-04 09:03 | MM ---
Reason for Exam: Additional evaluation requested from abnormal screening. Last screening mammogram was performed less than 1 month ago. Patient History: Menarche at age 14. First Full-Term at age 39. Late child-bearing (after 30). Maternal aunt had breast cancer at or over age 50. Paternal aunt had breast cancer at or over age 50. Risk Values: Xin 5 year model risk: 0.9%. NCI Lifetime model risk: 13.4%. Prior Study Comparison: 10/29/2023 Bilateral MG screening mammo w CAD, [facility]. Tissue Density: Left: The breasts are heterogeneously dense, which may obscure small masses. Findings: Analyzed By CAD. The questioned posterior medial asymmetric density disperses on additional views compatible with superimposition shadow. Overall Assessment: Benign, BI-RAD 2 Management: Screening Mammogram of both breasts in 1 year. . Results were given to the patient verbally at the time of exam. Patient should continue monthly self-breast exams. A clinical breast exam by your physician is recommended on an annual basis. This exam should not preclude additional follow-up of suspicious palpable abnormalities. Note on Xin scores and lifetime risk: 1. A Xin score greater than 3% is considered moderate risk. If this is the case, consider specialist referral to assess eligibility for a risk reducing agent. 2. If overall lifetime risk for the development of breast cancer is 20% or higher, the patient may qualify for future screening with alternating mammogram and breast MRI. Electronically signed and approved by: Gricelda Patterson M.D. Radiologist
== END | disposition home or self-care (01) ==
LOC: RADMAMWWP 08:31
PROVIDERS: ATTEND Obstetrics & Gynecology
DX: R92.332 Mammographic heterogeneous density, left breast (principal); Z80.3 Family history of malignant neoplasm of breast
CPT/HCPCS: 77061; 77065

== ENCOUNTER 2024-10-28 10:37 | Inpatient (IN) | payer OTHER ==
[2024-10-28 12:14] LABS: Creatinine,Urine Random 11.7 mg/dL; Protein/Creatinine Ratio,Urine 1.026
[2024-10-28 12:40] LABS: Basophils # (A) 0.01 10*3/uL (0.00-0.10); Basophils % (A) 0.1 %; Eosinophils # (A) 0.01 10*3/uL (0.04-0.35); Eosinophils % (A) 0.1 %; HCT 40.5 % (37.2-46.3); HGB 13.7 g/dL (12.0-15.0); Lymphocytes # (A) 0.95 10*3/uL (0.90-5.00); MCH 30.7 pg (27.0-32.0); MCHC 33.8 g/dL (32.0-37.0); MCV 90.8 fL (80.0-97.0); Mean Platelet Volume 11.7 fL (9.5-12.2); Monocytes # (A) 0.54 10*3/uL (0.20-1.00); Monocytes % (A) 7.4 %; Neutrophils # (A) 5.74 10*3/uL (1.80-7.70); Platelet Count 190 10*3/uL (140-440); RBC 4.46 10*6/uL (4.10-5.20); RDW 13.2 % (11.5-14.5); WBC 7.28 10*3/uL (4.50-10.00)
[2024-10-28 12:49] LABS: ALT 17 U/L (4-34); AST 27 U/L (14-36); African American GFR (CKD) >90 (>60 ml/min/1.73 sqM); Blood Urea Nitrogen 7 mg/dL (7-17); Non-African American GFR(CKD) >90 (>60 ml/min/1.73 sqM); Uric Acid 4.6 mg/dL (3.7-7.4)
[2024-10-28] MEDS ORDERED: TERBUTALINE 1 MG/ML VIAL SQ PRN (13:06)
[2024-10-28] MEDS ORDERED: CARBOPROST TROMETHAMINE 250 MCG/ML 1 ML AMP IM PRN (13:06)
[2024-10-28] MEDS ORDERED: miSOPROStoL 200 MCG TAB PO PRN (13:06)
[2024-10-28] MEDS ORDERED: OXYTOCIN 10 UNIT/ML 1 ML VIAL IM PRN (13:06)
[2024-10-28] MEDS ORDERED: TRANEXAMIC 1,000 MG/100ML-NACL 1,000 MG in EMPTY BAG 1 BAG IV PRN (13:06)
[2024-10-28] MEDS ORDERED: METHYLERGONOVINE 0.2 MG/ML 1 ML AMP IM PRN (13:06)
[2024-10-28] MEDS ORDERED: LIDOCAINE 0.5% (PF) 5 MG/ML (50 ML SDV) SQ PRN (13:06)
[2024-10-28] MEDS ORDERED: miSOPROStoL 200 MCG TAB RECTAL PRN (13:06)
[2024-10-28] MEDS ORDERED: OXYTOCIN 30 UNITS/500 ML NS 30 UNIT in SALINE 1 500ML.BAG IV SCH (13:15)
[2024-10-28] MEDS: LACTATED RINGERS 1,000 ML IV SCH (14:01)
[2024-10-28] MEDS: OXYTOCIN 30 UNITS/500 ML NS 30 UNIT in SALINE 1 500ML.BAG IV SCH (14:03)
[2024-10-28] MEDS ORDERED: ZOLPIDEM 5 MG TAB PO PRN (21:59)
[2024-10-28] MEDS ORDERED: HYDROCORTISONE 2.5% RECTAL CREAM 30 GM TUBE RECTAL PRN (21:59)
[2024-10-28] MEDS ORDERED: diphenhydrAMINE 25 MG CAP PO PRN (21:59)
[2024-10-28] MEDS ORDERED: diphenhydrAMINE 50 MG CAP PO PRN (21:59)
[2024-10-28] MEDS ORDERED: diphenhydrAMINE 50 MG/ML 1 ML VIAL IVP PRN ×2 (21:59)
[2024-10-28] MEDS ORDERED: SIMETHICONE 80 MG CHEWABLE PO PRN (21:59)
[2024-10-28] MEDS ORDERED: LANOLIN CREAM 1 GM TUBE TOPICAL PRN (21:59)
[2024-10-28] MEDS ORDERED: BENZOCAINE/MENTHOL SPRAY 1 GM/SPRAY AEROSOL TOPICAL PRN (21:59)
[2024-10-28] MEDS: IBUPROFEN 800 MG TAB PO PRN (22:07)
[2024-10-29] MEDS: ACETAMINOPHEN TAB 500 MG TAB PO PRN (04:30)
[2024-10-29 05:06] LABS: Basophils # (A) 0.03 10*3/uL (0.00-0.10); Basophils % (A) 0.2 %; Eosinophils # (A) 0.01 10*3/uL (0.04-0.35); Eosinophils % (A) 0.1 %; HCT 36.1 % (37.2-46.3); HGB 11.9 g/dL (12.0-15.0); Lymphocytes # (A) 1.03 10*3/uL (0.90-5.00); Lymphocytes % (A) 6.7 %; MCH 29.9 pg (27.0-32.0); MCV 90.7 fL (80.0-97.0); Mean Platelet Volume 12.3 fL (9.5-12.2); Monocytes # (A) 1.03 10*3/uL (0.20-1.00); Monocytes % (A) 6.7 %; Neutrophils # (A) 13.18 10*3/uL (1.80-7.70); Neutrophils % (A) 85.9 %; Platelet Count 180 10*3/uL (140-440); RBC 3.98 10*6/uL (4.10-5.20); RDW 13.1 % (11.5-14.5); WBC 15.34 10*3/uL (4.50-10.00)
[2024-10-29] MEDS: SENNOSIDES-DOCUSATE SODIUM 1 EACH TAB PO SCH (08:22)
--- NOTE | 2024-10-29 08:28 | P.HPOB ---
History of Present Illness H&P Date: 10/28/24 Chief Complaint: elevated BPs 44 year old presents after being in the office with elevated blood pressure when she went there for NST. She has a history of preeclampsia x 2. This is the second time she has had a elevated blood pressure in the office. Her preeclamptic labs showed an elevated PC ratio. She is also had some headaches in the last few days and some spots in her vision in the last few days. She was diagnosed with preeclampsia and will be induced for this indication. Her cervix is 1 to 2 cm dilated, 50% effaced, -3 station. She is christina irregularly. heart tones category 1. Review of Systems All systems: negative Constitutional: Denies chills, Denies fever Eyes: denies blurred vision, denies pain Ears, nose, mouth and throat: Denies headache, Denies sore throat Cardiovascular: Denies chest pain, Denies shortness of breath Respiratory: Denies cough Gastrointestinal: Denies abdominal pain, Denies diarrhea, Denies nausea, Denies vomiting Genitourinary: Denies dysuria, Denies hematuria Musculoskeletal: Denies myalgias Integumentary: Denies pruritus, Denies rash Neurological: Denies numbness, Denies weakness Psychiatric: Denies anxiety, Denies depression Endocrine: Denies fatigue, Denies weight change Past Medical History Past Medical History: Asthma Additional Past Medical History / Comment(s): 2 vag deliveries with preeclampsia History of Any Multi-Drug Resistant Organisms: None Reported Past Surgical History: No Surgical Hx Reported Additional Past Surgical History / Comment(s): skin biopsy Past Anesthesia/Blood Transfusion Reactions: No Reported Reaction Past Psychological History: No Psychological Hx Reported Smoking Status: Never smoker Past Alcohol Use History: None Reported Past Drug Use History: None Reported - Past Family History Mother Additional Family Medical History / Comment(s): diverticulits Medications and Allergies Home Medications Medication Instructions Recorded Confirmed Type Loratadine [Claritin] 10 mg PO DAILY 08/16/19 09/18/21 History RX: Ibuprofen [Motrin] 600 mg PO Q6HR PRN #40 tab 09/12/21 09/18/21 Rx Allergies Allergy/AdvReac Type Severity Reaction Status Date / Time shellfish derived [Shellfish] Allergy Anaphylaxis Verified 12/08/22 03:05 Exam Osteopathic Statement: *. No significant issues noted on an osteopathic structural exam other than those noted in the History and Physical/Consult. Vital Signs Temp Pulse Pulse Resp BP Pulse Ox 10/29/24 04:00 97.9 F 82 16 129/89 97 10/28/24 22:57 88 18 133/80 98 10/28/24 22:42 93 16 140/81 10/28/24 22:27 85 18 139/80 10/28/24 22:11 89 18 140/78 10/28/24 21:57 86 18 143/81 10/28/24 21:42 85 18 143/79 10/28/24 21:27 85 18 145/75 10/28/24 21:12 93 18 145/75 10/28/24 20:57 107 H 18 135/78 97 10/28/24 15:23 98.2 F 90 18 140/90 98 10/28/24 13:05 98.2 F 90 90 16 140/90 98 Intake and Output 10/28/24 10/29/24 10/29/24 22:59 06:59 14:59 Output Total 389 Balance -389 Output: Output, Quantitative 389 Blood Loss Other: # Voids 1 Weight 89.358 kg Heart: Regular rate and rhythm Lungs: Clear to auscultation bilaterally Abdomen: Soft, nontender Extremities: Negative Homans sign Results Result Diagrams: 10/29/24 03:55 10/28/24 12:15 Abnormal Lab Results - Last 24 Hours (Table) 10/28/24 10/28/24 10/29/24 Range/Units 12:15 12:15 03:55 WBC 15.34 H (4.50-10.00) 10*3/uL RBC 3.98 L (4.10-5.20) 10*6/uL Hgb 11.9 L (12.0-15.0) g/dL Hct 36.1 L (37.2-46.3) % MPV 12.3 H (9.5-12.2) fL Immature Gran # 0.06 H (0.00-0.04) 10*3/uL Neutrophils # 13.18 H (1.80-7.70) 10*3/uL Monocytes # 1.03 H (0.20-1.00) 10*3/uL Eosinophils # 0.01 L 0.01 L (0.04-0.35) 10*3/uL Creatinine 0.43 L (0.52-1.04) mg/dL Assessment and Plan (1) 39 weeks gestation of Current Visit: Yes Status: Acute Code(s): Z3A.39 - 39 WEEKS GESTATION OF SNOMED Code(s): 19972773 (2) Pre-eclampsia Current Visit: No Status: Acute Code(s): O14.90 - UNSPECIFIED PRE-ECLAMPSIA, UNSPECIFIED TRIMESTER SNOMED Code(s): 266753639 (3) Encounter for induction of labor Current Visit: No Status: Acute Code(s): Z34.90 - ENCNTR FOR SUPRVSN OF NORMAL , UNSP, UNSP TRIMESTER SNOMED Code(s): 680491964 Plan: 1. Induction of labor with amniotomy and Pitocin 2. Anticipate normal vaginal delivery
--- NOTE | 2024-10-29 08:30 | P.PROBDLV ---
Vaginal Delivery Note - . Vaginal Delivery Note: Date of service October 28, 2024 44 year old presents after being in the office with elevated blood pressure when she went there for NST. She has a history of preeclampsia x 2. This is the second time she has had a elevated blood pressure in the office. Her preec lamptic labs showed an elevated PC ratio. She is also had some headaches in the last few days and some spots in her vision in the last few days. She was diagnosed with preeclampsia and will be induced for this indication. Her cervix is 1 to 2 cm dilated, 50% effaced, -3 station. She is christina irregularly. heart tones category 1. Pitocin was started. Amniotomy performed at 1532 and clear fluid noted. Patient progressed quickly throughout the afternoon. Her cervix was completely dilated at 2031. She pushed, delivered a viable male infant over intact perineum at 2034. Head delivered OA, the posterior hand was also presenting right after the head so the posterior shoulder was delivered first on the anterior shoulder and rest of body. Nose and mouth bulb suction, clear clamped and cut, infant placed on mother's abdomen. Apgars 8, 9, weight 8 pounds 6.2 ounces. Placenta delivered spontaneously, intact with three-vessel cord at 2038. Vagina, cervix, perineum inspected. Second-degree midline laceration was repaired with 3-0 Vicryl. Estimated blood loss 150 mL. Mother and baby in stable condition.
--- NOTE | 2024-10-29 08:31 | P.PNOBGVD ---
Subjective - Subjective Principal diagnosis: Status postnormal vaginal delivery day #1 Interval history: Patient seen and examined. Denies nausea, vomiting, headache, chest pain, shortness of breath vision changes or calf pain. Her blood pressure this morning was quite good. Patient reports: Reports appetite normal, Reports voiding normally, Reports pain well controlled, Reports ambulating normally [place]: doing well Objective - Latest Vital Signs Latest vital signs: Vital Signs Temp Pulse Pulse Resp BP Pulse Ox 10/29/24 04:00 97.9 F 82 16 129/89 97 10/28/24 22:57 88 18 133/80 98 10/28/24 22:42 93 16 140/81 10/28/24 22:27 85 18 139/80 10/28/24 22:11 89 18 140/78 10/28/24 21:57 86 18 143/81 10/28/24 21:42 85 18 143/79 10/28/24 21:27 85 18 145/75 10/28/24 21:12 93 18 145/75 10/28/24 20:57 107 H 18 135/78 97 10/28/24 15:23 98.2 F 90 18 140/90 98 10/28/24 13:05 98.2 F 90 90 16 140/90 98 Intake and Output 10/28/24 10/29/24 10/29/24 22:59 06:59 14:59 Output Total 389 Balance -389 Output: Output, Quantitative 389 Blood Loss Other: # Voids 1 Weight 89.358 kg - Exam Lungs: bilateral: normal Chest: Normal S1, Normal S2 Extremities: Present: normal Abdomen: Present: normal appearance, soft Uterus: Present: normal, firm - Labs Labs: Abnormal Lab Results - Last 24 Hours (Table) 10/28/24 10/28/24 10/29/24 Range/Units 12:15 12:15 03:55 WBC 15.34 H (4.50-10.00) 10*3/uL RBC 3.98 L (4.10-5.20) 10*6/uL Hgb 11.9 L (12.0-15.0) g/dL Hct 36.1 L (37.2-46.3) % MPV 12.3 H (9.5-12.2) fL Immature Gran # 0.06 H (0.00-0.04) 10*3/uL Neutrophils # 13.18 H (1.80-7.70) 10*3/uL Monocytes # 1.03 H (0.20-1.00) 10*3/uL Eosinophils # 0.01 L 0.01 L (0.04-0.35) 10*3/uL Creatinine 0.43 L (0.52-1.04) mg/dL Assessment and Plan (1) 39 weeks gestation of Current Visit: Yes Status: Resolved Code(s): Z3A.39 - 39 WEEKS GESTATION OF SNOMED Code(s): 36996956 (2) Pre-eclampsia Current Visit: No Status: Acute Code(s): O14.90 - UNSPECIFIED PRE-ECLAMPSIA, UNSPECIFIED TRIMESTER SNOMED Code(s): 039897729 (3) Encounter for induction of labor Current Visit: No Status: Resolved Code(s): Z34.90 - ENCNTR FOR SUPRVSN OF NORMAL , UNSP, UNSP TRIMESTER SNOMED Code(s): 062666809 Plan: 1. Continue care 2. Monitor blood pressures closely
[2024-10-30 00:46] VITALS: RESP 16; TEMP 97.4
[2024-10-30 04:45] VITALS: BP 124/79; PULSE 73
--- NOTE | 2024-10-30 09:36 | P.DS ---
Providers Date of admission: 10/28/24 13:06 Expected date of discharge: 10/30/24 Attending physician: Peri Agrawal Primary care physician: Stated None - Discharge Diagnosis(es) (1) 39 weeks gestation of Current Visit: Yes Status: Resolved (2) Normal vaginal delivery Current Visit: No Status: Acute (3) Pre-eclampsia Current Visit: No Status: Acute Hospital Course: 44-year-old -0-2-2 presented to labor and delivery on 10/29 after elevated blood pressure was noted in the office. Patient does have a history of preeclampsia x 2. Patient has had 2 elevated blood pressures in the office. Preeclampsia labs showed an elevated PC ratio. In addition patient did note some headaches and spots in her vision over the last 2 days. Patient was admitted to labor and delivery for induction of labor secondary to preeclampsia. Patient underwent amniotomy and clear fluid was obtained. Pitocin was begun for augmentation of labor. Patient made quick progress toward complete dilation. Once completely dilated patient began pushing and had a normal spontaneous vaginal delivery of a viable male at 2034. Second-degree midline laceration was appreciated and repaired with 3-0 Vicryl. Patient's course has been essentially uneventful. In this day #2 she is ambulating and voiding without difficulty. She is breast-feeding without difficulty. Blood pressures have been within normal limits. 120s to 130s over 70s to 80s. Patient denies signs or symptoms of preeclampsia. Patient does desire discharge home later today. Patient Condition at Discharge: Good Plan - Discharge Summary Discharge Rx Participant: Yes New Discharge Prescriptions: No Action Loratadine [Claritin] 10 mg PO DAILY Ibuprofen [Motrin] 600 mg PO Q6HR PRN #40 tab PRN Reason: Mild Pain (Scale 1 To 3) Discharge Medication List Loratadine [Claritin] 10 mg PO DAILY 08/16/19 [History] Ibuprofen [Motrin] 600 mg PO Q6HR PRN #40 tab 09/12/21 [Rx] Follow up Appointment(s)/Referral(s): Lilia Varma DO [Doctor of Osteopathic Medicine] - 1 Week Patient Instructions/Handouts: Vaginal Delivery (DC), Vaginal Delivery (GEN) Activity/Diet/Wound Care/Special Instructions: No tub baths or intercourse until 6 weeks . [id number] ibuprofen 600 mg or 3 tablets every 6 hours as needed for pain. Patient is to schedule blood pressure check for next week Discharge Disposition: HOME SELF-CARE
== END 2024-10-30 12:40 | disposition home or self-care (01) | DRG 807 ==
LOC: FBPOP 10:37 → 4FBP 13:06
PROVIDERS: ADMIT Obstetrics & Gynecology; ATTEND Obstetrics & Gynecology
PROC: 0KQM0ZZ Repair Perineum Muscle, Open Approach (ICD-10-PCS; principal; 2024-10-28)
PROC: 10907ZC Drainage of Amniotic Fluid, Therapeutic from Products of Conception, Via Natural or Artificial Opening (ICD-10-PCS; principal; 2024-10-28)
PROC: 3E033VJ Introduction of Other Hormone into Peripheral Vein, Percutaneous Approach (ICD-10-PCS; principal; 2024-10-28)
PROC: 10E0XZZ Delivery of Products of Conception, External Approach (ICD-10-PCS; principal; 2024-10-28)
DX: O14.94 Unspecified pre-eclampsia, complicating childbirth (principal); O70.1 Second degree perineal laceration during delivery; Z3A.39 39 weeks gestation of pregnancy; Z37.0 Single live birth
CPT/HCPCS: 36415; 59025; 82565; 82570; 84156; 84450; 84460; 84520; 84550; 85025; 86850; 86900; 86901